=== PATIENT | female | born 1965 | race Caucasian/White ===

== ENCOUNTER 2024-10-26 08:41 | Day surgery (SDC) | payer OTHER ==
[~2024-10-26] VITALS: Ht 165.1 cm; Wt 90.5 kg
[2024-10-26] VITALS (14 sets, daily range): BP systolic 97–138; BP diastolic 62–118
[~2024-10-26 08:41] MED LIST: Lactated Ringer's 1,000 ML IV SCH
[2024-10-26] MEDS ORDERED: IBUP400 PO (09:12)
[2024-10-26] MEDS ORDERED: propofoL 40 ML IV ONE (09:37)
--- NOTE | 2024-10-26 10:01 | NUR ---
10/26/24 1001 Jacek Ceunca CONFIRMED AND REVIEWED H&P, MEDCICATIONS, ALLERGIES, MEDICAL HISTORY, RESPIRATORY HISTORY, VITAL SIGNS, 3-LEAD EKG, CONSENTS, AND PHYSICIAN ORDERS. PATIENT CONFIRMS NPO STATUS AND AGREES WITH SCHEDULED PROCEDURE. MONITOR INTACT WITH CONTINUOUS PULSE OXIMETRY, CAPNOGRAPHY, 3-LEAD EKG, INTERMITTENT BP. SUPPLEMENTAL O2 TO BE TITRATED THROUGHOUT PROCEDURE TO MAINTAIN O2 SATURATION ABOVE 90%. PATIENT DETERMINED TO BE ASA APPROPRIATE FOR PROPOFOL SEDATION PRIOR TO START OF PROCEDURE BY DR. MIMS.
--- NOTE | 2024-10-26 10:41 | NUR ---
Discharge instructions reviewed with patient. Patient verbalizes understanding. Copy given to patient to take home. Patient States Post-Procedure ride home has been arranged. Discharged via wheelchair to private car for ride home.
== END 2024-10-26 10:45 | disposition home or self-care (01) ==
LOC: ORSCMMR 08:41 → ORD 09:30 → ORSCMMR 10:45
PROVIDERS: Internal Medicine Gastroenterology
PROC: 0DBM8ZX Excision of Descending Colon, Via Natural or Artificial Opening Endoscopic, Diagnostic (ICD-10-PCS; principal; 2024-10-26 09:30)
DX: Z12.11 Encounter for screening for malignant neoplasm of colon (principal); R19.5 Other fecal abnormalities; D12.4 Benign neoplasm of descending colon
CPT/HCPCS: 88305; J2704; J7120

== ENCOUNTER → 2025-06-20 | Outpatient (CLI) | payer OTHER ==
[~2025-06-20] MED LIST changes: +IBUP400 PO; -Lactated Ringer's 1,000 ML IV SCH
[2025-06-22 21:10] LABS: HSV SUBTYPE SOURCE R BUTTOCK
== END | disposition home or self-care (01) ==
LOC: LAB 13:29 → LAB SHORT 13:29
PROVIDERS: General Practice
DX: L08.0 Pyoderma (principal)
CPT/HCPCS: 87529